=== PATIENT | female | born 1960 | race Caucasian/White ===

== ENCOUNTER 2017-07-19 01:59 | Inpatient (IN) | payer OTHER ==
[~2017-07-19] VITALS: Ht 170.2 cm; Wt 107.9 kg
[~2017-07-19 01:59] MED LIST: ALEVE220 MG PO; ASPIRIN325 MG PO; ATENOLOL25 MG PO; CALCITRIOL0.25 MCG PO; COUMADIN2.5 MG PO; DILAUDID2 MG PO; FERROUS SULFAT325 MG PO; FLEXERIL10 MG PO; LEXAPRO20 MG PO; PERCOCET 5/31 TABLET PO; SEROQUEL50 MG PO; SYNTHROID112 MCG PO; TORADOL10 MG PO; VISTARIL25 MG PO
[2017-07-19 03:17] LABS: HEMATOCRIT 36.5 % (36.0-46.0); HEMOGLOBIN 11.9 G/DL (11.9-15.5); MCHC 32.6 G/DL (30.0-36.0); MCV 82.8 FL (83-99); PLATELET COUNT 234 K/uL (156-360); RBC DIS.WIDTH-CV 14.4 % (11.8-14.6); RBC DIS.WIDTH-SD 43.6 % (39-53); RED BLOOD COUNT 4.41 M/uL (3.80-5.20); WHITE BLOOD COUNT 7.7 K/uL (4.1-10.2)
[2017-07-19 03:34] LABS: ALBUMIN 3.9 g/dL (3.2-4.8); CHLORIDE 104 mEq/L (99-109); POTASSIUM 4.1 mEq/L (3.7-5.4); SODIUM 138 mEq/L (136-147)
[2017-07-19 03:36] LABS: GLUCOSE 85 mg/dL (70-99); TOTAL PROTEIN 6.8 g/dL (6.4-8.3)
[2017-07-19 03:38] LABS: TOTAL BILIRUBIN 0.3 mg/dL (0.0-1.0)
[2017-07-19 03:40] LABS: ALKALINE PHOSPHATASE 141 IU/L (3-129); GFR ESTIMATE (CALCULATED) > 59 mL/min/
[2017-07-19 03:41] LABS: AST (GOT) 21 IU/L (2-34); UREA NITROGEN (BUN) 22 mg/dL (9-23)
[2017-07-19 03:43] LABS: ALT (GPT) 17 IU/L (3-49); LIPASE 24 U/L (1.0-51.0)
[2017-07-19 04:20] LABS: PHOSPHORUS 4.7 mg/dL (2.5-4.9)
[2017-07-19 04:26] LABS: TROP-I INTERPRETATION NEGATIVE; TROPONIN-I < 0.01 ng/mL (0.0-0.30)
[2017-07-19 04:35] LABS: APPEARANCE CLEAR ((CLEAR)); BILIRUBIN NEGATIVE; BLOOD NEGATIVE; COLOR YELLOW ((YELLOW)); GLUCOSE (STRIP) NEGATIVE; KETONES NEGATIVE; LEUKOCYTES TRACE; NITRITE NEGATIVE; PROTEIN (STRIP) NEGATIVE; SPECIFIC GRAVITY 1.014 (1.000-1.030); UROBILINOGEN 0.2 MG/DL (0.2-1.0)
[2017-07-19 04:53] LABS: BACTERIA NONE SEEN /HPF; EPITHELIAL CELLS RARE /HPF; MUCUS NONE SEEN /LPF; RED BLOOD CELLS 0-5 /HPF (0-5); UCUL ADDED? YES
[2017-07-19 08:28] VITALS: BP 173/84
[2017-07-19 10:40] LABS: C DIFF TOXIN NEGATIVE (NEGATIVE)
[2017-07-19 11:42] VITALS: BP 162/78
[2017-07-19 15:37] VITALS: BP 139/67
[2017-07-20 00:14] VITALS: BP 124/86
[2017-07-20 06:50] VITALS: BP 200/93
[2017-07-20 07:04] LABS: HEMATOCRIT 33.1 % (36.0-46.0); HEMOGLOBIN 10.5 G/DL (11.9-15.5); MCHC 31.7 G/DL (30.0-36.0); MCV 81.9 FL (83-99); PLATELET COUNT 212 K/uL (156-360); RBC DIS.WIDTH-CV 14.4 % (11.8-14.6); RBC DIS.WIDTH-SD 42.9 % (39-53); RED BLOOD COUNT 4.04 M/uL (3.80-5.20); WHITE BLOOD COUNT 6.7 K/uL (4.1-10.2)
[2017-07-20 07:44] LABS: ALBUMIN 3.2 G/DL (3.2-4.8); ALKALINE PHOSPHATASE 107 IU/L (3-129); ALT (GPT) 11 IU/L (3-49); AST (GOT) 13 IU/L (2-34); CHLORIDE 106 MEQ/L (99-109); CREATININE 1.1 MG/DL (0.6-1.3); GFR ESTIMATE (CALCULATED) 55 mL/min/; GLUCOSE 87 mg/dL (70-99); SODIUM 143 MEQ/L (136-147); TOTAL BILIRUBIN 0.4 MG/DL (0.0-1.0); TOTAL PROTEIN 5.6 G/DL (6.4-8.3); UREA NITROGEN (BUN) 15 mg/dL (9-23)
[2017-07-20 08:59] VITALS: BP 116/73
[2017-07-20 11:51] VITALS: BP 120/80
[2017-07-20] MEDS ORDERED: LOPERAMIDE2 MG PO (12:09)
[2017-07-22 02:33] LABS: INTACT PARATHYROID HORMONE < 6 pg/mL (10-69)
== END 2017-07-20 16:49 | disposition home or self-care (01) | DRG 641 ==
LOC: EME 01:59 → EDOF 05:27 → 5EAST 05:27 → ENRESERV 05:29 → 5EAST 08:16
PROVIDERS: Emergency Medicine; Internal Medicine; Nurse Practitioner Adult Health; Specialist
DX: E83.51 Hypocalcemia (principal); R19.7 Diarrhea, unspecified; F41.9 Anxiety disorder, unspecified; F32.9 Major depressive disorder, single episode, unspecified; E03.9 Hypothyroidism, unspecified; E21.3 Hyperparathyroidism, unspecified; Z88.6 Allergy status to analgesic agent; Z88.5 Allergy status to narcotic agent; Z79.01 Long term (current) use of anticoagulants; Z96.652 Presence of left artificial knee joint; Z79.899 Other long term (current) drug therapy; D71 Functional disorders of polymorphonuclear neutrophils; Z83.3 Family history of diabetes mellitus; Z85.850 Personal history of malignant neoplasm of thyroid
CPT/HCPCS: 74177; 80053; 81003; 82306; 82310; 83516 90; 83605; 83630; 83690; 83970; 84100; 84484; 85027; 87086; 87493; 87506; 87651 90; 93005; 99281; 99285; J0360; J7030; J7050